=== PATIENT | male | born 1980 | race Two or more races ===

== ENCOUNTER 2023-03-24 14:09 | Emergency (ER) | payer MEDICAID ==
[~2023-03-24] VITALS: Ht 157.5 cm; Wt 62.1 kg
[2023-03-24 14:25] VITALS: BP 120/77; PULSE 52; RESP 16; TEMP 98.2; O2SAT 98
[2023-03-24] MEDS ORDERED: DEXAMETHASONE 10 MG/ML VIAL IM ONE (15:00)
[2023-03-24] MEDS ORDERED: FAMOTIDINE 20 MG TAB PO ONE (15:00)
[2023-03-24] MEDS ORDERED: DIPHENHYDRAMINE HCL/ZINC ACET 28 GM TUBE TP PRN (15:05)
[2023-03-24] MEDS ORDERED: DIPH1CRE TP (15:27)
[2023-03-24] MEDS ORDERED: DIPH25TA53 PO (15:27)
[2023-03-24] MEDS ORDERED: LORA1T1237 PO (15:27)
[2023-03-24 15:36] VITALS: BP 118/74; PULSE 60; RESP 18
== END 2023-03-24 14:37 | disposition home or self-care (01) ==
LOC: MED 14:09
DX: R21 Rash and other nonspecific skin eruption (principal); L29.9 Pruritus, unspecified; Z79.899 Other long term (current) drug therapy
CPT/HCPCS: 96372; 99283; J1100